=== PATIENT | female | born 1995 | race Caucasian/White ===

== ENCOUNTER → 2024-10-30 11:34 | Outpatient (REF) | payer OTHER, SELFPAY | LOC: HWRAD 11:34 | PROVIDERS: ATTENDING PHYSICIAN Surgery; FAMILY PHYSICIAN Nurse Practitioner Family | DX: N13.2 Hydronephrosis with renal and ureteral calculous obstruction (principal) | CPT/HCPCS: 74176 ==

== ENCOUNTER → 2024-11-08 11:54 | Outpatient (REF) | payer OTHER, SELFPAY | LOC: HWRAD 11:54 | PROVIDERS: ATTENDING PHYSICIAN Surgery; FAMILY PHYSICIAN Nurse Practitioner Family | DX: N20.0 Calculus of kidney (principal); Z87.442 Personal history of urinary calculi | CPT/HCPCS: 74018 ==